=== PATIENT | female | born 1945 | race Asian ===

== ENCOUNTER 2017-01-29 05:06 | Inpatient (IN) | payer OTHER ==
[~2017-01-29] VITALS: Ht 152.4 cm; Wt 50.8 kg
--- NOTE | ~2017-01-29 | O ---
[facility] [place] [address] OPERATIVE REPORT Name: CORBYELADIA Margarita Room #: 417-I [facility] IN M.R.#: [id number] Admission: 01/29/17 Attend Phys: Mynor Denton DO Discharge: 02/04/17 Date of : 49 Report #: [id number] THIS REPORT FOR: //name// CC: Mynor Hunter DATE OF SERVICE: 01/31/2017 PREOPERATIVE DIAGNOSES: Cholecystitis, cholelithiasis and generalized lymphadenopathy. POSTOPERATIVE DIAGNOSES: 1. Cholecystitis with cholelithiasis. 2. Generalized lymphadenopathy and axillary lymphadenopathy. OPERATIVE PROCEDURE: 1. Laparoscopic cholecystectomy with cholangiogram. 2. Needle biopsy of liver. 3. Left axillary lymph node biopsy. SURGEON: Remington Jackson MD. GRADE RECORDER: Vargas Fink MD and DARREL Rutledge for the axillary lymph node biopsy. SECOND INDUSTRIAL ELECTRICIAN: Ravin Mai MS3. INDICATIONS: This is a 71-year-old lady who has presented with abdominal pain, found to have cholelithiasis by ultrasound. Her CAT scan also demonstrates periaortic and parailiac generalized lymphadenopathy. Clinically, the patient has a right supraclavicular node as well as enlarged left axillary nodes. The patient is also having right upper quadrant discomfort and requires resection of the gallbladder as well as lymph node evaluation. OPERATIVE PROCEDURE: The patient had thorough discussion of procedure, benefits and risks, she and her daughter gave informed consent. She was given preoperative IV antibiotics. She was brought to the operating room suite and had satisfactory induction of general endotracheal anesthesia. The patient's left arm was abducted. Sterile prep and paint of the left axillary region was performed initially, 0.5% plain Naropin was injected at the skin level. A 3-4 cm incision was made in the left axilla directly over the enlarged lymph node. Sharp and blunt dissection was carried down to the lymph node. Gentle dissection around the lymph node was performed utilizing a small jaws LigaSure device as well as Metzenbaum scissors. The entire large pink 2 cm diameter thickened node was excised intact with morphology intact without morcellation. After the resection was completed, was given the fresh date to pathology for [address] [address] OPERATIVE REPORT Name: ELADIA TAVAREZ Room #: 417-I [facility].#: [id number] Admission: 01/29/17 Attend Phys: Mynor Denton DO Discharge: 02/04/17 Date of : 49 Report #: [id number] histologic evaluation and flow cytometry. Irrigation of the wound was performed. Hemostasis was complete. The deep fascia of the axilla was approximated with interrupted 3-0 Vicryl and more superficial fascia was approximated with running 3-0 Vicryl. Skin margins were approximated with subcuticular 4-0 Monocryl. Dermabond was applied. Attention was then turned to the entire abdomen. DuraPrep preparation was performed. After draping was completed, another appropriate timeout was then performed. Open cutdown procedure was performed in the right upper quadrant below the costochondral margin. The Optiport trocar device was utilized with a 5.0 scope to gain access to the peritoneum. After access was obtained, pneumoperitoneum was established. The was then utilized to gain access at the umbilicus since the patient had a long midline incision from previous splenectomy. A 12 mm port with the balloon was inserted under direct vision at the infraumbilical port site. A midline 5-mm port was placed under direct vision and a far lateral 5-mm port was placed under direct vision. The gallbladder was grasped, retracted cephalad and laterally. The cystic duct lymph node was quite enlarged. The cystic duct triangle was clearly delineated. The cystic duct was identified and was clipped toward the gallbladder. Cystotomy was performed and the taut catheter was inserted and an operative cholangiogram was performed demonstrating free flow of contrast into the duodenum. No filling defects were noted. The cystic artery was identified and doubly clipped proximally. The artery was divided with the Sonicision without difficulty. After the cholangiogram was completed and the taut catheter removed, the duct was triply ligated. It was then divided with Sonicision. The gallbladder was resected from the fossa utilizing the Sonicision. It was placed into an Endobag and removed from the peritoneal cavity. After this was completed, the suture passing device was utilized under direct vision at the infraumbilical port site with placement of 0 PDS x 2 under direct vision. The trocar was reintroduced and the laparoscope introduced. Copious irrigation and control of the gallbladder fossa with electrocautery was performed. After evacuation of irrigating contents was accomplished, Kimberly powder was placed into the gallbladder fossa. No drains were placed. The Monopty needle biopsy device was utilized to obtain 2 pieces of liver tissue for further evaluation. This area of the biopsy site was cauterized with electrocautery. The Kimberly powder covered the gallbladder fossa as well as the biopsy site. After this was completed, all trocars were removed under direct vision. The pneumoperitoneum was deflated. The 0 PDS at the umbilicus was ligated in place. Skin margins were then approximated with subcuticular 4-0 Monocryl. The estimated blood loss was less than 25 mL. The patient tolerated the procedure well and she returned to recovery room in stable and satisfactory condition. <ELECTRONICALLY SIGNED> By: Remington Jackson MD, FACS 02/06/17 1018 1809 [id number] Remington Jackson MD, FACS /nt
--- NOTE | ~2017-01-29 | HC ---
[facility] [place] [address] CONSULTATION Name: BRAINDELIAELADIA Margarita Room #: 417-I ADM IN M.R.#: [id number] Admission: 01/29/17 Attend Phys: Mynor Denton DO Discharge: Date of : 49 Report #: [id number] THIS REPORT FOR: //name// CC: Mynor Hunter DATE OF SERVICE: 01/29/2017 I have been asked to evaluate this 71-year-old lady who has presented to Emergency Room with chief complaint of upper abdominal pain. The patient awakened at approximately 0300 the morning, she presented to the Emergency Department with pain in the upper abdomen. This seemed to be radiating across the upper abdomen involving both the left upper quadrant and the right upper quadrant. She denied vomiting, but has had nausea. She has had no recent change in gastrointestinal function. She does not have a recall having a colonoscopy or EGD in her recent medical history. 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 SOCIAL HISTORY: She smokes half pack of cigarettes a day for many years. Denies alcohol or illegal drug use. She is a . of lung cancer, was a lifelong 40 years in the [employer]. ALLERGIES: LEVOFLOXACIN, DOXYCYCLINE AND BACTRIM. MEDICATIONS: Singulair, lisinopril/hydrochlorothiazide. FAMILY HISTORY: Hypertension. REVIEW OF SYSTEMS: A 10-point review of systems essentially noncontributory except for recent onset of the abdominal pain with slight obstipation in the last 24 hours. PHYSICAL EXAMINATION: GENERAL: Reveals an alert, cooperative lady. VITAL SIGNS: Within normal limits, low grade temperature, slight temperature elevation. She is awake and alert. HEENT: No scleral icterus is noted. NECK: Supple, no bruits. CARDIOVASCULAR: Regular rate and rhythm. LUNGS: Clear bilaterally. ABDOMEN: Soft. There is a well-healed upper midline scar, tenderness is mild in the right upper quadrant. No palpable mass. No guarding or rebound is [address] [address] CONSULTATION Name: ELADIA TAVAREZ [facility] ..#: [id number] Admission: 01/29/17 Attend Phys: Mynor Denton DO Discharge: Date of : 47 Report #: [id number] noted. NEUROLOGIC: She is oriented x 3. LABORATORY DATA: Demonstrates lipase of 346. Liver function tests within normal. Creatinine 2, white count 12.2. Ultrasound of the abdomen demonstrates large gallstones with some suggestion of thickening. DIAGNOSTIC IMPRESSION: Abdominal pain, most likely related to cholelithiasis, although the symptoms are somewhat atypical. I recommend GI consultation, consideration for EGD and colonoscopy preoperatively. If these are negative, then I would proceed with laparoscopic cholecystectomy. The patient also on CT scan has significant generalized retroperitoneal lymphadenopathy. On exam, the patient has a right supraclavicular node as well as some left axillary adenopathy. I would recommend left axillary lymph node biopsy at the time of laparoscopic cholecystectomy. Thank you for allowing us to participate in her care. <ELECTRONICALLY SIGNED> By: Remington Jackson MD, FACS 02/04/17 1356 1415 0107 Remington Jackson MD, FACS /nt
--- NOTE | ~2017-01-29 | P ---
[facility] [place] [address] PROCEDURE REPORT Name: CORBYELADIA Margarita Room #: 417-I ADM IN M.R.#: [id number] Admission: 01/29/17 Attend Phys: Doni Terry MD Discharge: Date of : 49 Report #: [id number] THIS REPORT FOR: //name// CC: Burke Terry MD DATE OF SERVICE: 01/30/2017 TopofForm PROCEDURE: Diagnostic colonoscopy. INDICATION FOR PROCEDURE: Evaluate for sources of epigastric and right upper quadrant pain. Screening for colon polyps and colon cancer. DESCRIPTION OF PROCEDURE: Informed consent for this procedure was obtained prior to the administration of any medication. The risks of the procedure which include bleeding, perforation, infection, complications of sedation and the possibility I could miss something have been explained to the patient and she has indicated her consent by signing. Propofol was slowly titrated before and during this procedure for patient comfort by the anesthesia service as well as during the EGD that preceded it. The digital rectal exam did not reveal any palpable masses or abnormalities. Then the [employer] colonoscope was introduced through the anal sphincter and advanced under direct visualization to the terminal ileum. Findings are noted on withdrawal of the scope. The terminal ileum is not well visualized because I could not fully cannulate the ileocecal valve. The ileocecal valve and the appendiceal orifice, however, appear normal as does the rest of the cecum. Ascending colon, normal mucosa. Hepatic flexure, normal mucosa. Transverse colon, normal mucosa. Splenic flexure, normal mucosa. Descending colon, normal mucosa. Sigmoid colon, normal mucosa. Rectum, normal mucosa. Retroflex view in the rectum did not reveal any other abnormalities. The scope was withdrawn. The patient's prep was fairly good. She went to the recovery room in stable condition. She tolerated the procedure well. IMPRESSION: Normal colonoscopic exam to the cecum with good visualization of the appendiceal orifice and the ileocecal valve. I was unable to cannulate the ileocecal valve to visualize the terminal ileum. RECOMMENDATIONS: At this point are to await the EGD, biopsies, and we will await further surgical input regarding this epigastric pain and possible cholecystectomy. [address] [address] PROCEDURE REPORT Name: ELADIA TAVAREZ Room #: 417-I [facility] IN M.R.#: [id number] Admission: 01/29/17 Attend Phys: Doni Terry MD Discharge: Date of : 49 Report #: [id number] Thank you very much once again for allowing me to participate in her care. <ELECTRONICALLY SIGNED> By: Gita Lemons DO 01/31/17 0933 1629 0102 Gita Lemons, /nt
--- NOTE | ~2017-01-29 | EKG ---
[address] [place] [address] ELECTROCARDIOGRAM REPORT Name: ELADIA TAVAREZ Room #: 417-I ADM IN .R.#: [id number] Admission: 01/29/17 Attend Phys: Doni Terry MD Discharge: Date of : 49 Report #: [id number] THIS REPORT FOR: //name// [facility] ED Test Date: 2017-01-29 Test Time: 05:46:37 Pat Name: ELADIA CORBY Department: Room: [facility] Gender: F Branch Specialist: olga : 1945 Requested By: Tabitha Wong Order Number: [id number] MD: Stephen Lee Measurements Intervals [place] Rate: 70 P: 30 [place]: 167 QRS: 26 QRSD: 84 T: -50 QT: 443 QTc: 479 Interpretive Statements Sinus rhythm Atrial premature complex Probable LVH with secondary repol abnrm Baseline wander in lead(s) V5 No previous ECG available for comparison Electronically Signed On 01-31-2017 13:10:18 CDT by Stephen Lee [email or web address] <ELECTRONICALLY SIGNED> By: Stephen Lee MD 01/31/17 1310 Stephen Lee MD /HELADIO
--- NOTE | ~2017-01-29 | HC ---
[facility] [place] [address] CONSULTATION Name: CORBYELADIA Margarita Room #: 417-I [facility] IN .R.#: [id number] Admission: 01/29/17 Attend Phys: Mynor Denton DO Discharge: 02/04/17 Date of : 49 Report #: [id number] THIS REPORT FOR: //name// CC: Remington Terry MD HISTORY OF PRESENT ILLNESS: This 71-year-old female was admitted emergently with complaints of abdominal pain and subsequently found to have gallstone. CT scanning also revealed a suspicious retroperitoneal lymphadenopathy. She has a past history of prior lymph node biopsy at [facility] in the past, but those records are not currently unobtainable in checking with Research and we think it has been some 25 or so years ago. She denies any recent weight loss, sweats, chills, or fevers prior to the acute event. She has not detected pain in any of the enlarged lymph node areas until the acute event. PAST MEDICAL HISTORY: Positive prior splenectomy. She had previous knee surgery. She had prior medically managed hypertension. She has dyslipidemia. HOME MEDICATIONS: Include Singulair as well as lisinopril/hydrochlorothiazide. ALLERGIES: LEVOFLOXACIN, DOXYCYCLINE and BACTRIM causing hives. SOCIAL HISTORY: She is of [place] extraction with Frisian as a second language. She smokes half a pack of cigarettes per day. She denies alcohol abuse, illicit drug use, high risks of sexual behavior. FAMILY HISTORY: Positive for hypertension. REVIEW OF SYSTEMS: As in the history of present illness. PHYSICAL EXAMINATION: GENERAL: Shows alert female. HEENT: Normocephalic. Her mouth is clear. NECK: Supple. CHEST: Clear. ABDOMEN: Shows recent surgery. LYMPHATICS: Recent axillary lymph node biopsy. NEUROLOGIC: No focal localizing signs. PSYCHIATRIC: Not agitated or confused. LABORATORY DATA: Shows elevated serum creatinine. [facility] [address] [place] [address] CONSULTATION Name: ELADIA TAVAREZ Room #: 417-I [facility].#: [id number] Admission: 01/29/17 Attend Phys: Mynor Denton DO Discharge: 02/04/17 Date of : 49 Report #: [id number] ASSESSMENT: Lymphadenopathy. PLAN: I have told her this morning that the lymph node biopsy specimen has not yet been read by the pathologist and that these are usually not processed over the weekend. Hopefully, something will be out tomorrow. She is anxious to go home and if these results are still pending, I will make arrangements for outpatient followup if needed. Thanks for allowing me to see her in consultation and allowing me to participate in her care for what may represent a low-grade lymphoma. <ELECTRONICALLY SIGNED> By: Brit Keita MD 02/06/17 1327 1459 28 MD jaimee Stratton
--- NOTE | ~2017-01-29 | S ---
[facility] [place] [address] SURGICAL PATH RPT PROCEDURE Name: ELADIA TAVAREZ Room #: 417-I ADM IN M.R.#: [id number] Admission: 01/29/17 Date of : 49 Discharge: Report #: [id number] Path Case #: [id number] PATHOLOGY REPORT COLLECTION DATE: 01/30/2017 RECEIVED DATE: 01/31/2017 SUBMITTING PHYS: Dr. Gita Lemons OTHER PHYS: Dr. Burke Schumacher SPECIMEN(S) RECEIVED: A.Gastric * * * * * * * * * * * * FINAL DIAGNOSIS: Gastric mucosa, gastric, endoscopic biopsy: - Mild active gastritis along with changes of reactive gastropathy with focal intestinal metaplasia. - Negative for atrophy or dysplasia. - Negative for Helicobacter pylori. COMMENT: Helicobacter pylori immunohistochemical stain performed on block A1 negative. An intensive search for Helicobacter pylori-like organisms is negative. Absence of such organisms does not entirely exclude the possibility and may be due to sampling or prior treatment for Helicobacter pylori. Other possible etiologies may include chemical or medication induced gastritis, autoimmune gastritis, gastritis associated with inflammatory bowel disease. Please correlate with clinical, endoscopic, and microbiological studies if clinically indicated. (IUV:csd; d/t: 02/03/2017) PATHOLOGIST: Triny Ness M.D. REPORT ELECTRONICALLY SIGNED BY: Triny Ness M.D. DATE/TIME: 02/03/2017 16:10 * * * * * * * * * * * * GROSS PATHOLOGY: Received in formalin labeled "McGroarty, Eladia and gastric," are 4 segments of rios soft tissue measuring 1.6 x 0.3 x 0.3 cm in aggregate dimensions and ranging from 0.2 to 0.5 cm in maximum dimension. The specimen is submitted entirely in cassette A1. (TTL; 01/31/2017) [facility] [place] [address] SURGICAL PATH RPT PROCEDURE Name: ELADIA TAVAREZ B Room #: 417-I ADM IN [facility]#: [id number] Admission: 01/29/17 Date of : 49 Discharge: Report #: [id number] Path Case #: [id number] CLINICAL HISTORY: Abdominal pain INITIAL CPT CODE(S): A; 64000, 94374 Professional services performed by [facility] at [address] , [place] [address] Technical services performed by [facility] at [address] [place] [address], [facility] [address] [address]. [facility] [address] [address] PHONE: [phone] DIRECTOR: Kulwinder Montgomery M.D. * * * END OF REPORT * * *
--- NOTE | ~2017-01-29 | P ---
[facility] [place] [address] PROCEDURE REPORT Name: CORBYELADIA Margarita Room #: 417-I ADM IN M.R.#: [id number] Admission: 01/29/17 Attend Phys: Doni Terry MD Discharge: Date of : 49 Report #: [id number] THIS REPORT FOR: //name// CC: Burke Terry MD DATE OF SERVICE: 01/30/2017 PROCEDURE: Esophagogastroduodenoscopy with biopsy. The patient of Dr. Terry and Dr. Burke Hunter. INDICATION FOR PROCEDURE: This patient has epigastric and right upper quadrant pain of uncertain etiology. Colonoscopy has never been done for this patient in the past for screening purposes, so EGD and colonoscopy are being offered and the patient is prepped and agreeable. The risks of bleeding, perforation, infection, complications of sedation, and the possibility I could miss something have been explained to the patient and she has indicated her consent by signing. Propofol was slowly titrated before and during this procedure for patient comfort by the anesthesia service. The Kodkod upper videoscope was introduced through the upper esophageal sphincter and advanced under direct visualization to the descending duodenum. Findings are noted on withdrawal of the scope. The duodenal mucosa appears normal throughout its entirety. Pylorus, normal mucosa. Antrum, mild erythema is noted. Biopsies were obtained from the antrum and body of the stomach for Helicobacter pylori rapid JAIDEN test. Body, normal mucosa. Cardia and fundus, normal mucosa. Retroflex view did not reveal any hiatal hernia. The scope was withdrawn to the esophagus. The Z line was appropriately located at the top of the gastric folds and appears normal. The esophageal mucosa appears normal throughout its entirety. The scope was withdrawn. The patient was turned for colonoscopy. IMPRESSION: Very mild antral erythema. Biopsies pending for H. pylori other than that, normal esophagogastroduodenoscopy to descending duodenum. Recommendations are to await the biopsy results and we will proceed with colonoscopy at this time. Thank you very much once again for allowing me to participate in her care. PROCEDURE: Diagnostic colonoscopy. INDICATION FOR PROCEDURE: Evaluate for sources of epigastric and right upper quadrant pain. [facility] [address] [place] [address] PROCEDURE REPORT Name: ELADIA TAVAREZ Room #: 417-I [facility] IN [facility].#: [id number] Admission: 01/29/17 Attend Phys: Doni Terry MD Discharge: Date of : 49 Report #: [id number] Screening for colon polyps and colon cancer. DESCRIPTION OF PROCEDURE: Informed consent for this procedure was obtained prior to the administration of any medication. The risks of the procedure which include bleeding, perforation, infection, complications of sedation and the possibility I could miss something have been explained to the patient and she has indicated her consent by signing. Propofol was slowly titrated before and during this procedure for patient comfort by the anesthesia service as well as during the EGD that preceded it. The digital rectal exam did not reveal any palpable masses or abnormalities. Then the Fujinon colonoscope was introduced through the anal sphincter and advanced under direct visualization to the terminal ileum. Findings are noted on withdrawal of the scope. The terminal ileum is not well visualized because I could not fully cannulate the ileocecal valve. The ileocecal valve and the appendiceal orifice, however, appear normal as does the rest of the cecum. Ascending colon, normal mucosa. Hepatic flexure, normal mucosa. Transverse colon, normal mucosa. Splenic flexure, normal mucosa. Descending colon, normal mucosa. Sigmoid colon, normal mucosa. Rectum, normal mucosa. Retroflex view in the rectum did not reveal any other abnormalities. The scope was withdrawn. The patient's prep was fairly good. She went to the recovery room in stable condition. She tolerated the procedure well. IMPRESSION: Normal colonoscopic exam to the cecum with good visualization of the appendiceal orifice and the ileocecal valve. I was unable to cannulate the ileocecal valve to visualize the terminal ileum. RECOMMENDATIONS: At this point are to await the EGD, biopsies, and we will await further surgical input regarding this epigastric pain and possible cholecystectomy. Thank you very much once again for allowing me to participate in her care. <ELECTRONICALLY SIGNED> By: Gita Lemons DO 01/31/17 0933 1629 0058 Gita Lemons DO /nt
--- NOTE | ~2017-01-29 | S ---
[facility] [address] [place] [address] SURGICAL PATH RPT PROCEDURE Name: ELADIA TAVAREZ Room #: 417-I ADM IN M.R.#: [id number] Admission: 01/29/17 Date of : 49 Discharge: Report #: [id number] Path Case #: [id number] PATHOLOGY REPORT DRAFT COLLECTION DATE: 01/31/2017 RECEIVED DATE: 01/31/2017 SPECIMEN(S) RECEIVED: A.Left axillary node B.Gallbladder C.Liver biopsy
--- NOTE | ~2017-01-29 | HC ---
[facility] [place] [address] [place] [address] CONSULTATION Name: ELADIA TAVAREZ Room #: 417-I ADM IN .R.#: [id number] Admission: 01/29/17 Attend Phys: Mynor Denton DO Discharge: Date of : 49 Report #: [id number] THIS REPORT FOR: //name// CC: Mynor Keiat MD DATE OF SERVICE: 02/03/2017 REASON FOR CONSULTATION: Elevated creatinine level. HISTORY OF PRESENT ILLNESS: This is a 71-year-old female who presented 5 days ago with acute abdominal pain. There were multiple findings. Amongst these included cholecystitis with cholelithiasis. She ended up having a laparoscopic cholecystectomy done on 01/31/2017. She has recovered nicely from that. In addition, she was found to have some abnormal appearance of her liver and also some enlarged retroperitoneal aortic and iliac lymph nodes. She underwent a lymph node biopsy at that same time as well as a liver biopsy. The results of that are pending. We are asked to see the patient for an elevated creatinine level. On admission, her creatinine was 2.0. It has been running between that and 2.4, which it is today. In talking with the patient, she knows of no prior renal-related history. She says she is followed by Dr. Burke Hunter and he has never made mention of an abnormal creatinine level. Her urinalysis shows she has 1+ proteinuria. She is unaware of prior proteinuria. She has a history of hypertension and previously was on lisinopril with hydrochlorothiazide. For some reason that was stopped on admission. She is now on some metoprolol and amlodipine and blood pressures came under better control. Additional remarkable findings include an admission total protein of 9.6 and an albumin of 2.5. She had a serum protein electrophoresis done which shows an enlarged gamma fraction and immunofluorescence is pending on that. Dr. Brit Keita has been consulted of the oncology division and he is awaiting the biopsy of the lymph node to make further determinations if anything else needs to be done. PAST MEDICAL HISTORY: Positive for hypertension as noted above. She has had a previous splenectomy and I am uncertain why she has also had a prior right lower extremity surgery. She had previous bleeding ulcers. She has hyperlipidemia. MEDICATIONS: On admission were lisinopril, hydrochlorothiazide and some Singulair. ALLERGIES: LEVAQUIN, DOXYCYCLINE, BACTRIM. FAMILY HISTORY: Father in his late 80s. He developed renal failure and he was living in the [facility] at that time. He the kidney transplant for 5 or 6 years before that kidney failed and he shortly after that. The [address] [address] CONSULTATION Name: ELADIA TAVAREZ Room #: 417-I [facility] IN ..#: [id number] Admission: 01/29/17 Attend Phys: Mynor Denton DO Discharge: Date of : 49 Report #: [id number] patient is unaware of what caused his renal failure. Her mother lived to a very old age and of old age. She had 6 brothers, one was after of a stomach cancer, two others were from unknown causes. She knows of no one else in the family with history of renal disease. SOCIAL HISTORY: The patient is a . She lives in [place], [place]. She is retired. She immigrated from the [facility] in her early adulthood. REVIEW OF SYSTEMS: States she is breathing well. Denies dyspnea, cough, chest pain or palpitations. Says her appetite has not picked up fully since surgery, but she is eating without nausea or vomiting. Pain is well controlled. No peripheral edema. No difficulty voiding urine. Weight has been stable. She denies fevers, chills or sweats. No recent visual or hearing change. PHYSICAL EXAMINATION: GENERAL: Very pleasant 71-year-old female, awake, alert and oriented at this time. VITAL SIGNS: Blood pressure 148/92, heart rate 61, respiratory rate 18, oxygen saturation 95%, temperature 37.3. HEENT: Shows pupils are equal and reactive. Sclerae nonicteric. She is edentulous. Oral mucosa is without lesions. NECK: Supple, without adenopathy, thyromegaly, JVD or bruit. CHEST: Clear bilaterally, no CVA tenderness. CARDIOVASCULAR: Heart has a regular rate and rhythm. No murmur or gallop or rub. ABDOMEN: Postop. It is fairly nontender. Bowel sounds are present. EXTREMITIES: Show no peripheral edema. She has 1+ peripheral pulses. LABORATORY DATA: From today, sodium 141, potassium 3.2, chloride 110, bicarbonate 19, BUN 45, creatinine 2.4, glucose 90, calcium 8.2, phosphorus 3.2, albumin down to 1.8. White count 14.3, hemoglobin 11.6, hematocrit 36.2, platelets 370,000. Urinalysis on admission, specific gravity 1.015, pH 6.0, 1+ protein, 2+ blood, fairly unremarkable microscopic exam. She did have a urine protein creatinine ratio which showed 395 mg of protein. ASSESSMENT AND PLAN: 1. Chronic kidney disease is the most likely diagnosis. Her creatinine has been persistent in the 2 range. We will try to contact Dr. Hunter and see what his records show us as he has followed her regularly. She does have some proteinuria. Her father of renal failure, but his kidneys did not fail until the 80s, so I doubt this is a familial problem. 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 She had a CT scan which showed no obstructive changes and fairly normal appearing kidneys. With that in mind, the more likely diagnosis with mild proteinuria as well as her very large globulin fraction and her lymphadenopathy is that she has a paraprotein disorder and might have developed some renal disease due to that. We will know a lot more on [facility] [address] [place] [address] CONSULTATION Name: ELADIA TAVAREZ Room #: 417-I ADM IN M.R.#: [id number] Admission: 01/29/17 Attend Phys: Mynor Denton DO Discharge: Date of : 47 Report #: [id number] that pending her immunofluorescence on her protein evaluation as well as her lymph node biopsy. If those are positive, she will need treatment and we will see how her kidneys respond to all that. I would note that she is not massively nephrotic. She has no edema. 2. Hypertension. We probably want to get her back on some lisinopril in the long run, but we can always do that as an outpatient. For right now, we will keep her on her current meds. 3. Three days post laparoscopic cholecystectomy, liver biopsy and lymph node biopsy. She is progressing well postop. 4. Abnormal white count with multiple areas of lymphadenopathy, again biopsy is pending as noted above. 5. Hypokalemia. We will give her some oral replacement today. PLAN: 1. Replace potassium. 2. Follow up labs in the morning. 3. We will await to see her what her biopsy shows. 4. We will try to get records from Dr. Hunter. 5. We will then see her in the office for followup longer term. <ELECTRONICALLY SIGNED> By: Thong Byrnes MD 02/04/17 0842 [id number] Thong Byrnes MD /nt
--- NOTE | ~2017-01-29 | H ---
[facility] [place] [address] [address] HISTORY AND PHYSICAL Name: BRAINDELIAELADIA Margarita Room #: 417-I ADM IN .R.#: [id number] Admission: 01/29/17 Attend Phys: Doni Terry MD Discharge: Date of : 47 Report #: [id number] THIS REPORT FOR: //name// CC: Burke Terry DATE OF SERVICE: 01/29/2017 CHIEF COMPLAINT: Abdominal pain. HISTORY OF PRESENT ILLNESS: The patient is a 71-year-old female with history of hypertension, presented to the Emergency Room complaining of upper abdominal pain. The patient woke up at around 2:30 this morning complaining of pain. Pain is primarily in the upper abdomen in the epigastric area and in the right upper and left upper quadrant. It feels like gas pain to her. This has been associated with some mild nausea, but no vomiting, no diarrhea, no hematemesis, no melena. The patient denies any dysuria. Workup in the Emergency Room included an ultrasound which showed a gallstone. Her creatinine also elevated at 2.0. PAST MEDICAL HISTORY: Significant for hypertension, history of splenectomy, history of knee surgery. No history of any peptic ulcer disease, bleeding disorder. She has no history of any coronary artery disease. History of dyslipidemia. SOCIAL HISTORY: She smokes half a pack a day. No history of alcohol abuse or illicit drug abuse. ALLERGIES: The patient is allergic to LEVOFLOXACIN, DOXYCYCLINE and BACTRIM, all caused her hives. The patient is a very poor historian. HOME MEDICATIONS: Includes Singulair and lisinopril/hydrochlorothiazide. FAMILY HISTORY: Significant for hypertension. REVIEW OF SYSTEMS: CONSTITUTIONAL: No recent weight loss, weight gain. No fever or chills. EYES: No change in vision. THROAT: Denies any sore throat. CARDIOVASCULAR: No chest pain, dizziness, palpitations. RESPIRATORY: No cough, expectoration. GASTROINTESTINAL: As above. GENITOURINARY: As above. NEUROLOGIC: No focal numbness or weakness of the extremity. [facility] [address] [place] [address] HISTORY AND PHYSICAL Name: ELADIA TAVAREZ Room #: 417-I [facility] IN [facility]#: [id number] Admission: 01/29/17 Attend Phys: Doni Terry MD Discharge: Date of : 47 Report #: [id number] PSYCHIATRIC: No anxiety or depression. A 12-point review of system is negative other than the positive and negative dictated in the history of present illness and the review of system. PHYSICAL EXAMINATION: VITAL SIGNS: Reveal blood pressure is 117/74, heart rate of 98 per minute, afebrile. GENERAL: The patient is awake and alert, not in acute respiratory distress. EYES: Pupils equal, reactive to light, nonicteric, conjunctivae. THROAT: She has a dry oral mucosa. NECK: Supple, no JVD, no bruit, no lymphadenopathy. CARDIOVASCULAR SYSTEM: S1, S2, negative S3, no murmur. CHEST: Bilateral air entry present. Clear on auscultation. ABDOMEN: Soft, bowel sounds present, no mass, no organomegaly. There is tenderness in the right upper quadrant and epigastric area. No rebound tenderness. PERIPHERY: No pedal edema. No calf tenderness. Dorsalis pedis 1+. NEUROLOGICAL: No gross motor or sensory deficit. LABORATORY DATA: Reviewed. Lipase is 346. AST and ALT are within normal limits. Creatinine is elevated at 2.0. Potassium is low at 3.2. White count is 12.2 with normal hemoglobin, hematocrit and platelets. UA revealed 0-5 wbc. Ultrasound of the abdomen showed a large gallstone. There is also some gallbladder wall thickening. ASSESSMENT AND PLAN: 1. Abdominal pain, possible peptic ulcer disease and gallbladder disease. The patient has been evaluated by Dr. Jackson from Surgery. The patient is scheduled for a PIPIDA scan and a CT scan of the abdomen and pelvis. We will continue with IV Zosyn at present. 2. She has a rash on her lower extremity. The patient states she was allergic to ANTIBIOTIC prescribed by a doctor, it is not very clear what ANTIBIOTIC she took recently. 3. Hypertension. We will discontinue lisinopril/hydrochlorothiazide secondary to acute renal failure. We will order p.r.n. hydralazine. 4. Acute renal failure, likely prerenal secondary to poor p.o. intake. We will continue with IV hydration and repeat her labs in the morning. 5. Deep venous thrombosis prophylaxis. She will be on SCD on the leg for deep venous thrombosis prophylaxis. 6. History of splenectomy. 7. Hypokalemia. Potassium has been replaced in the ER. [address] [address] HISTORY AND PHYSICAL Name: ELADIA TAVAREZ Room #: [address] [place] [address] [place] ..#: [id number] Admission: 01/29/17 Attend Phys: Doni Terry MD Discharge: Date of : 47 Report #: [id number] Treatment plan has been explained to the patient and the patient's daughter at bedside in detail. <ELECTRONICALLY SIGNED> By: Doni Terry MD 01/29/17 1421 [id number] 1322 Doni Terry MD /nt
[2017-01-29 05:07] VITALS: BP 221/101
[2017-01-29] MEDS ORDERED: IBUPROFEN 600600 M1 PO (05:27)
[2017-01-29 05:33] LABS: ABSOLUTE NEUTROPHILS 9.5 thou/uL (1.4-8.2); BASOPHILS 0.6 % (0.0-2.0); EOSINOPHILS 1.9 % (0.0-3.0); HEMOGLOBIN 12.5 gm/dL (12.0-15.0); LYMPHOCYTES 14.4 % (24.0-44.0); MCH 26.6 pg (26.0-34.0); MCHC 32.1 g/dL (28.0-37.0); MCV 82.7 fL (80.0-100.0); MONOCYTES 5.9 % (1.0-8.0); PLATELET COUNT 363 thou/uL (150-400); POLYS 77.2 % (36.0-66.0); RBC 4.71 mil/uL (4.20-5.00); RDW 15.9 % (10.5-14.5); WBC 12.2 thou/uL (4.0-11.0)
[2017-01-29 05:36] LABS: MANUAL DIFF NO
[2017-01-29 05:50] LABS: URINE BILIRUBIN NEGATIVE (Negative); URINE BLOOD 2+ (Negative); URINE COLOR YELLOW; URINE GLUCOSE-RANDOM* NEGATIVE (Negative); URINE KETONES NEGATIVE (Negative); URINE LEUKOCYTES-REFLEX NEGATIVE (Negative); URINE PROTEIN (DIPSTICK) 1+ (Negative); URINE SPECIFIC GRAVITY 1.015 (1.003-1.035); URINE UROBILINOGEN 0.2 E.U./dl (0.2-1.0)
[2017-01-29 05:52] LABS: ALBUMIN 2.5 g/dL (3.4-5.0); CALCIUM 8.5 mg/dL (8.5-10.1); POTASSIUM 3.2 mmol/L (3.5-5.1); TOTAL BILIRUBIN 0.2 mg/dL (<0.1-1.0); TOTAL PROTEIN 9.6 g/dL (6.4-8.2)
[2017-01-29 06:24] LABS: SQUAMOUS 0-3 Few /LPF (0-3)
[2017-01-29 06:25] LABS: CASTS None Seen /LPF (None Seen); CRYSTALS None Seen /LPF (None Seen); URINE RBC 0-2 Rare /HPF (0-2); URINE WBC-REFLEX 0-5 Rare /HPF (0-5)
[2017-01-29 07:48] VITALS: BP 123/72
[2017-01-29 08:20] VITALS: BP 117/74
[2017-01-29 16:48] VITALS: BP 143/84
[2017-01-29 19:20] VITALS: BP 173/73
[2017-01-29 21:19] VITALS: BP 133/57
[2017-01-30 04:00] VITALS: BP 144/65
[2017-01-30 06:34] LABS: HEMATOCRIT 37.5 % (37.0-47.0); HEMOGLOBIN 12.1 gm/dL (12.0-15.0); MCH 26.6 pg (26.0-34.0); MCHC 32.4 g/dL (28.0-37.0); MCV 82.2 fL (80.0-100.0); RBC 4.56 mil/uL (4.20-5.00); RDW 15.6 % (10.5-14.5); WBC 10.9 thou/uL (4.0-11.0)
[2017-01-30 07:06] LABS: CALCIUM 7.9 mg/dL (8.5-10.1); POTASSIUM 3.6 mmol/L (3.5-5.1); TOTAL BILIRUBIN 0.9 mg/dL (<0.1-1.0); TOTAL PROTEIN 7.8 g/dL (6.4-8.2)
[2017-01-30 07:23] VITALS: BP 138/71
[2017-01-30 17:11] VITALS: BP 117/71
[2017-01-30 19:47] VITALS: BP 127/77
[2017-01-31] VITALS (7 sets, daily range): BP systolic 121–148; BP diastolic 65–73
[2017-01-31 02:48] LABS: URINE BILIRUBIN NEGATIVE (Negative); URINE BLOOD 1+ (Negative); URINE COLOR YELLOW; URINE GLUCOSE-RANDOM* NEGATIVE (Negative); URINE KETONES NEGATIVE (Negative); URINE LEUKOCYTES-REFLEX NEGATIVE (Negative); URINE PROTEIN (DIPSTICK) TRACE (Negative); URINE UROBILINOGEN 0.2 E.U./dl (0.2-1.0)
[2017-01-31 05:49] LABS: ABSOLUTE NEUTROPHILS 7.7 thou/uL (1.4-8.2); BASOPHILS 0.4 % (0.0-2.0); EOSINOPHILS 6.9 % (0.0-3.0); HEMATOCRIT 36.8 % (37.0-47.0); HEMOGLOBIN 11.7 gm/dL (12.0-15.0); MCH 26.4 pg (26.0-34.0); MCHC 31.9 g/dL (28.0-37.0); MCV 82.7 fL (80.0-100.0); MONOCYTES 9.5 % (1.0-8.0); PLATELET COUNT 304 thou/uL (150-400); POLYS 65.2 % (36.0-66.0); RBC 4.45 mil/uL (4.20-5.00); RDW 15.9 % (10.5-14.5); WBC 11.7 thou/uL (4.0-11.0)
[2017-01-31 06:06] LABS: MANUAL DIFF NO
[2017-01-31 06:14] LABS: CALCIUM 7.9 mg/dL (8.5-10.1); CREATININE 2.1 mg/dL (0.6-1.3); POTASSIUM 3.5 mmol/L (3.5-5.1)
[2017-01-31 07:57] LABS: CASTS None Seen /LPF (None Seen); SQUAMOUS 0-3 Few /LPF (0-3)
[2017-01-31 07:58] LABS: CRYSTALS None Seen /LPF (None Seen); URINE RBC 0-2 Rare /HPF (0-2); URINE WBC-REFLEX 0-5 Rare /HPF (0-5)
[2017-02-01 04:00] VITALS: BP 153/85
[2017-02-01 07:15] LABS: HEMATOCRIT 36.1 % (37.0-47.0); HEMOGLOBIN 11.5 gm/dL (12.0-15.0); MCH 26.5 pg (26.0-34.0); MCHC 31.8 g/dL (28.0-37.0); MCV 83.5 fL (80.0-100.0); RBC 4.32 mil/uL (4.20-5.00); RDW 16.1 % (10.5-14.5); WBC 14.4 thou/uL (4.0-11.0)
[2017-02-01 07:25] LABS: CALCIUM 8.3 mg/dL (8.5-10.1); CREATININE 2.3 mg/dL (0.6-1.3); POTASSIUM 4.6 mmol/L (3.5-5.1)
[2017-02-01 07:31] VITALS: BP 148/84
[2017-02-01 15:27] VITALS: BP 173/98
[2017-02-01 20:00] VITALS: BP 183/73
[2017-02-02 04:30] VITALS: BP 191/101
[2017-02-02 06:58] LABS: HEMOGLOBIN 12.5 gm/dL (12.0-15.0); MCH 26.6 pg (26.0-34.0); MCV 83.1 fL (80.0-100.0); RBC 4.7 mil/uL (4.20-5.00); WBC 12.7 thou/uL (4.0-11.0)
[2017-02-02 07:10] LABS: CALCIUM 8.3 mg/dL (8.5-10.1); CREATININE 2.3 mg/dL (0.6-1.3); POTASSIUM 3.7 mmol/L (3.5-5.1)
[2017-02-02 07:54] VITALS: BP 178/89
[2017-02-02 11:15] VITALS: BP 184/91
[2017-02-02 16:00] VITALS: BP 170/83
[2017-02-02 20:00] VITALS: BP 163/95
[2017-02-03] VITALS (7 sets, daily range): BP systolic 139–178; BP diastolic 76–93
[2017-02-03 04:46] LABS: HEMATOCRIT 36.2 % (37.0-47.0); HEMOGLOBIN 11.6 gm/dL (12.0-15.0); MCH 26.4 pg (26.0-34.0); MCHC 32.1 g/dL (28.0-37.0); MCV 82.2 fL (80.0-100.0); RBC 4.41 mil/uL (4.20-5.00); RDW 15.9 % (10.5-14.5); WBC 14.3 thou/uL (4.0-11.0)
[2017-02-03 05:01] LABS: ALBUMIN 1.8 g/dL (3.4-5.0); CALCIUM 8.2 mg/dL (8.5-10.1); CREATININE 2.4 mg/dL (0.6-1.3); PHOSPHORUS 3.2 mg/dL (2.5-4.9); POTASSIUM 3.2 mmol/L (3.5-5.1)
[2017-02-03 15:07] LABS: A/G RATIO 0.5 (0.7-1.7); ALBUMIN 2.6 g/dL (2.9-4.4); ALPHA 1 0.3 g/dL (0.0-0.4); ALPHA 2 0.6 g/dL (0.4-1.0); BETA 0.7 g/dL (0.7-1.3); GAMMA 3.3 g/dL (0.4-1.8); M-SPIKE Not Observed g/dL (Not Observed)
[2017-02-03 18:07] LABS: URINE CREATININE-RANDOM* 40.8 mg/dL (Not Estab.); URINE PROTEIN-RANDOM* 16.1 mg/dL (Not Estab.)
[2017-02-04 04:00] VITALS: BP 163/72
[2017-02-04 06:50] LABS: ALBUMIN 1.9 g/dL (3.4-5.0); CALCIUM 8.4 mg/dL (8.5-10.1); CREATININE 2.1 mg/dL (0.6-1.0); PHOSPHORUS 3.4 mg/dL (2.5-4.9)
[2017-02-04 07:01] VITALS: BP 161/72
== END 2017-02-04 17:00 | disposition home health service (06) | DRG 417 ==
LOC: ER 05:06 → 4E 06:36 → EROBS 06:36 → 4E 07:48
PROVIDERS: Emergency Medicine; Hospitalist; Internal Medicine; Internal Medicine Gastroenterology; Internal Medicine Nephrology; Surgery
PROC: 0DB68ZX Excision of Stomach, Via Natural or Artificial Opening Endoscopic, Diagnostic (ICD-10-PCS; 2017-01-30)
PROC: 0DJD8ZZ Inspection of Lower Intestinal Tract, Via Natural or Artificial Opening Endoscopic (ICD-10-PCS; 2017-01-30)
PROC: BF121ZZ Fluoroscopy of Gallbladder using Low Osmolar Contrast (ICD-10-PCS; principal; 2017-01-31)
PROC: 07B64ZX Excision of Left Axillary Lymphatic, Percutaneous Endoscopic Approach, Diagnostic (ICD-10-PCS; principal; 2017-01-31)
PROC: 0FT44ZZ Resection of Gallbladder, Percutaneous Endoscopic Approach (ICD-10-PCS; principal; 2017-01-31)
PROC: 0FB04ZX Excision of Liver, Percutaneous Endoscopic Approach, Diagnostic (ICD-10-PCS; principal; 2017-01-31)
DX: K80.00 Calculus of gallbladder with acute cholecystitis without obstruction (principal); E43 Unspecified severe protein-calorie malnutrition; N17.9 Acute kidney failure, unspecified; E87.6 Hypokalemia; Z96.659 Presence of unspecified artificial knee joint; I10 Essential (primary) hypertension; E78.5 Hyperlipidemia, unspecified; R59.1 Generalized enlarged lymph nodes; F17.210 Nicotine dependence, cigarettes, uncomplicated; K21.9 Gastro-esophageal reflux disease without esophagitis; R16.0 Hepatomegaly, not elsewhere classified; Z90.81 Acquired absence of spleen; Z88.1 Allergy status to other antibiotic agents; Z82.49 Family history of ischemic heart disease and other diseases of the circulatory system; Z79.899 Other long term (current) drug therapy; Z68.21 Body mass index [BMI] 21.0-21.9, adult
CPT/HCPCS: 10084; 50010; 50101; 50249; 50411; 50555; 50900; 50942; 50962; 51046; 51489; 51975; 52265; 52266; 52287; 53307; 53314; 54022; 54118; 55245; 55317; 56462; 56524; 56525; 56526; 56531; 56970; 62110; 62900; 70005

== ENCOUNTER 2017-02-07 01:41 | Inpatient (IN) | payer OTHER ==
[~2017-02-07] VITALS: Ht 152.4 cm; Wt 46.3 kg
--- NOTE | ~2017-02-07 | H ---
[facility] [place] [address] [place] [address] HISTORY AND PHYSICAL Name: CORBYELADIA Margarita Room #: 210-P [facility] IN .R.#: [id number] Admission: 02/07/17 Attend Phys: Noah Marie MD Discharge: 02/07/17 Date of : 47 Report #: [id number] THIS REPORT FOR: //name// CC: Burke Marie DATE OF SERVICE: 02/07/2017 ATTENDING PHYSICIAN: Noah Marie M.D. PRIMARY CARE PHYSICIAN: Burke Hunter M.D. CHIEF COMPLAINT: Epigastric and chest pain. HISTORY OF PRESENT ILLNESS: The patient is a 71-year-old female who was just hospitalized here for acute cholecystitis and ended up having a laparoscopic cholecystectomy with cholangiogram and a liver biopsy. This was done on 01/29. She did well postoperatively and was just discharged to home 3 days ago. She has been back to eating normal foods and has had a few small bowel movements since surgery. Her pain has been controlled on tramadol. Last night she ate a few bites of some pizza crust and an hour or so later, she started having some severe epigastric pain. The pain went into her chest area. She thought this pain was similar to when she had her cholecystitis issues. She describes it as "like somebody is fighting in there." She did have some associated dizziness, shortness of breath and nausea, but denies any vomiting. She also says it feels like heartburn and gas. She was evaluated in the ER and noted to have a mildly elevated troponin, and she has been admitted for further cardiac evaluation. She denies any prior coronary artery disease. She says she has had a stress test as well as an echocardiogram at [facility] she thinks within the last year. 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 She denies any injury, denies any recent illness including cough or congestion, fevers or chills. She is currently resting comfortably. PAST MEDICAL HISTORY: Chronic kidney disease stage III, gastritis, hypertension and hyperlipidemia. PAST SURGICAL HISTORY: Cholecystectomy, splenectomy, liver biopsy and knee repair. ALLERGIES: ACETAMINOPHEN causes hives and itching, DOXYCYCLINE causes rash and hives, HYDRALAZINE hives, LEVOFLOXACIN rash and hives and BACTRIM unknown reaction. HOME MEDICATIONS: Lisinopril/hydrochlorothiazide 20/12.5 one tab daily and tramadol 50 mg q.6 hours p.r.n. [address] [address] HISTORY AND PHYSICAL Name: ELADIA TAVAREZ Room #: 210-P [facility] IN [facility].#: [id number] Admission: 02/07/17 Attend Phys: Noah Marie MD Discharge: 02/07/17 Date of : 47 Report #: [id number] SOCIAL HISTORY: The patient smokes 1 pack of cigarettes, but it will last her a month. Denies any alcohol or drug use. She is a . She lives alone. She ambulates independently. FAMILY HISTORY: Significant for hypertension, negative for any strokes. REVIEW OF SYSTEMS: A 12-point review of systems was reviewed with the patient, otherwise negative unless stated in the HPI. PHYSICAL EXAMINATION: GENERAL: The patient is an alert female in no acute distress. VITAL SIGNS: Temperature is 37.2, heart rate 78, respirations 17, blood pressure is 156/96 and oxygen 100% on room air. HEENT: PERRLA. Sclerae are nonicteric. Oral mucosa is pink and moist. NECK: Supple, no JVD noted. CARDIOVASCULAR: Normal S1 and S2. No murmurs, rubs or gallops. RESPIRATORY: Breath sounds are clear bilaterally. No wheezing or rhonchi. Breathing is nonlabored. ABDOMEN: Soft and nondistended. She does have slight tenderness in the epigastric area. Bowel sounds are positive. VASCULAR: No edema noted. Pedal pulses are 2+. She does have some palpable cord like vein in her right half that is tender to palpation but her calf really does not have any edema. NEUROLOGIC: The patient is an alert female in no acute distress. SKIN: Intact. No rashes or lesions. LABORATORY AND DIAGNOSTIC DATA: WBC is 15.6, hemoglobin 13.1 and platelets 47. Sodium 135, potassium 3.1, BUN 34, creatinine 2.0 and troponin was 0.17. D-dimer is 4.28, albumin is 2.3, lipase is 357 and EKG is showing sinus rhythm with a left ventricular hypertrophy and V/Q scan is pending. ASSESSMENT AND PLAN: 1. Epigastric pain and chest pain: The patient was noted to have a mildly elevated troponin. Her symptoms may be cardiac related. We will continue to monitor on telemetry, check 2 more sets of troponins. We will keep her n.p.o. for possible further cardiac testing and consult Dr. Cope with Cardiology. We will also try a dose of a GI cocktail. 2. Elevated D-dimer: The patient does have a palpable cord like vein in her right calf. We will check venous Doppler. 3. Recent cholecystectomy: Continue with postoperatively pain control. 4. Chronic kidney disease stage III: Creatinine is stable from previous admission. Monitor renal function closely. 5. Hypertension: Blood pressure is stable. We will hold her home meds while she is n.p.o. and then resume when able to take p.o. 6. Hyperlipidemia: Resume home meds when able to take p.o. 7. Hypokalemia: Replace and follow labs. [facility] [address] [place] [address] HISTORY AND PHYSICAL Name: ELADIA TAVAREZ Room #: 210-P [facility] IN M.R.#: [id number] Admission: 02/07/17 Attend Phys: Noah Marie MD Discharge: 02/07/17 Date of : 47 Report #: [id number] 8. Deep vein thrombosis prophylaxis: Start Lovenox. We will continue to follow the patient closely throughout the hospitalization and make changes based on clinical status. <ELECTRONICALLY SIGNED> By: DARREL Vaughn 02/11/17 0608 0629 0733 DARREL Vaughn /nt
--- NOTE | ~2017-02-07 | 2DMMODE ---
[facility] [address] [facility] [place] [address] 2 D/M-MODE ECHOCARDIOGRAM Name: ELADIA TAVAREZ Room #: 210-P [facility] IN .R.#: [id number] Admission: 02/07/17 Attend Phys: Noah Marie, Discharge: Date of : 49 Date of Service: 02/07/17 0959 Report #: [id number] THIS REPORT FOR: //name// APPROVED REPORT Study performed: 02/07/2017 08:12:23 EXAM: Comprehensive 2D, Doppler, and color-flow Echocardiogram Patient Location: Echo lab/Room 210 Blood Pressure: 149/88 mmHg HR: 62 bpm Rhythm: NSR Other Information Study Quality: Adequate Indications Chest Pain Hx: HTN, HLP, tobacco abuse. 2D Dimensions RVDd: 27.78 mm LVEF(%): 52.89 (>50%) IVSd: 12.22 (7-11mm) LVOT Diam: 17.74 (18-24mm) LVDd: 41.80 mm PWd: 12.40 (7-11mm) Ascending Aorta: 27.35 mm LVDs: 30.55 (25-40mm) Aortic Root: 30.69 mm Meadows's LVEF: 52.89 % Volumes Left Atrial Volume (Systole) Single Plane 4CH: 19.06 mL Single Plane 2CH: 42.81 mL LA ESV Index: 23.00 mL/m2 Aortic Valve AoV Peak Mariano.: 1.40 m/s AI PHT: 483.75 ms AO Peak Gr.: 7.81 mmHg LV Max P.89 mmHg LV Max: 0.99 m/s AI Vmax: 5.35 m/s AI Hitchcock: 3.21 m/s2 Mitral Valve [facility] [address] [place] [address] 2 D/M-MODE ECHOCARDIOGRAM Name: ELADIA TAVAREZ Room #: [address] [place] [address] [place] ..#: [id number] Admission: 02/07/17 Attend Phys: Noah Marie, Discharge: Date of : 49 Date of Service: 02/07/17 0959 Report #: [id number] MV PHT: 88.15 ms MV E Max Mariano.: 0.58 m/s E/A Ratio: 0.6 MV A Mariano.: 0.97 m/s MV Decel. Time: 303.98 ms Pulmonary Valve PV Peak Mariano.: 0.94 m/s PV Peak Gr.: 3.53 mmHg Tricuspid Valve TR Peak Mariano.: 1.89 m/s RAP Estimate: 5.00 mmHg TR Peak Gr.: 14.32 mmHg RVSP: 19.00 mmHg Left Ventricle The left ventricle is normal size. There is normal LV segmental wall motion. Mild concentric left ventricular hypertrophy. Left ventricular systolic function is normal. LVEF is 55%. Grade I - abnormal relaxation pattern. Right Ventricle The right ventricle is normal size. The right ventricular systolic function is normal. Atria The left atrium size is normal. The right atrium size is normal. Aortic Valve The Aortic valve is sclerotic. Mild aortic regurgitation. There is no aortic valvular stenosis. Mitral Valve The mitral valve is normal in structure. Trace mitral regurgitation. Tricuspid Valve The tricuspid valve is normal in structure. There is trace to mild tricuspid regurgitation. The right atrial pressure is estimated at 5 mmHg. Estimated PAP is 19mmHg. Pulmonic Valve The pulmonary valve is normal in structure. Trace pulmonic regurgitation. Great Vessels The aortic root is normal in size. The ascending aorta is normal in size. IVC is normal in size and collapses >50% with inspiration. [facility] [address] [place] [address] 2 D/M-MODE ECHOCARDIOGRAM Name: ELADIA TAVAREZ Room #: 210-P [facility] IN [facility]#: [id number] Admission: 02/07/17 Attend Phys: Noah Marie, Discharge: Date of : 49 Date of Service: 02/07/17 0959 Report #: [id number] Pericardium There is no pericardial effusion. <Conclusion> Mild concentric left ventricular hypertrophy. There is normal LV segmental wall motion. LVEF is 55%. Grade I - abnormal relaxation pattern. The Aortic valve is sclerotic. Mild aortic regurgitation, no stenosis. Structurally normal mitral valve. Trace mitral regurgitation. There is no pericardial effusion. <ELECTRONICALLY SIGNED> By: Reza Hanna MD, [facility] 02/07/17958 8 8 Reza Hanna MD, FAC /INF
--- NOTE | ~2017-02-07 | HC ---
[facility] [place] [address] CONSULTATION Name: BRAINDELIAELADIA B Room #: 210-[facility] M.R.#: [id number] Admission: 02/07/17 Attend Phys: Noah Marie MD Discharge: 02/07/17 Date of : 49 Report #: [id number] THIS REPORT FOR: //name// CC: Burke Marie REASON FOR CONSULTATION: Elevated troponin. HISTORY OF PRESENT ILLNESS: The patient is a 71-year-old female with no known heart disease, recently discharged after having cholecystectomy, cholangiogram and liver biopsy. She was discharged about 3 days ago, but presents with both epigastric and chest pain. Her [place] is somewhat limited making things will challenging, but she does report that she has been having this band like pressure along her lower chest and then chest pressure in her chest is tend to worse with inspiration. She denies any shortness of breath. She denies PND or orthopnea. She denies presyncope or syncope. REVIEW OF SYSTEMS: GENERAL: No fevers or chills. HEENT: No blurred vision. CARDIOVASCULAR: As above. PULMONARY: No productive cough. GASTROINTESTINAL: No nausea, vomiting. GENITOURINARY: No dysuria. MUSCULOSKELETAL: No myalgias, arthralgias. ENDOCRINE: No heat or cold intolerance. NEUROLOGIC: No focal weakness. PAST MEDICAL HISTORY: 1. Hypertension. 2. Hyperlipidemia. 3. Tobacco abuse. 4. Chronic renal insufficiency. 5. Gastritis. 6. Splenectomy. 7. Knee repair. 8. Cholecystectomy with cholangiogram/liver biopsy. SOCIAL HISTORY: She smokes 1 pack per day. FAMILY HISTORY: Includes hypertension. ALLERGIES: DOXYCYCLINE, ACETAMINOPHEN, BACTRIM, LEVAQUIN. MEDICATIONS: Include metoprolol 12.5 b.i.d. Lovenox, potassium, GI cocktail, fentanyl, Zofran, nitro, aspirin. [facility] [address] [place] [address] CONSULTATION Name: ELADIA TAVAREZ Room #: [address] [place] [address]#: [id number] Admission: 02/07/17 Attend Phys: Noah Marie MD Discharge: 02/07/17 Date of : 49 Report #: [id number] PHYSICAL EXAMINATION: VITAL SIGNS: Temperature is 36.4, pulse 67, respiration 14, blood pressure 149/88. GENERAL: She is in some mild distress, complaining of mostly abdominal pain. HEENT: Oropharynx is clear. NECK: Supple, with no thyromegaly or carotid bruits. HEART: Regular rate and rhythm with normal S1 and S2. No S3, S4. LUNGS: Clear to auscultation bilaterally. ABDOMEN: Soft, nontender, nondistended with no hepatosplenomegaly. EXTREMITIES: There is no clubbing, cyanosis, edema. Cranial nerves 2-12 are intact. LABORATORY DATA: White count 15.6, hemoglobin 13, platelets are 487. D-dimer 4.28. Sodium 135, potassium 3.1, BUN 34, creatinine 2.0. I do not what her baseline creatinine is. T-bili, direct bili, AST, ALT, alkaline phosphatase all normal. Troponin initially was 0.17, decreased to 0.13. Her EKG shows some lateral ST changes different from her prior EKG a few days ago. She is in normal sinus rhythm. Chest x-ray shows no acute process. Her V/Q scan was normal. Her lower extremities show no evidence of deep vein thrombosis. ASSESSMENT AND PLAN: The patient is a 71-year-old female with a history of hypertension, tobacco abuse, chronic renal insufficiency with some abdominal and chest pain. The etiology of this is not entirely clear. She does have a slightly elevated troponin and slight lateral abnormalities on her EKG. Given her chronic renal insufficiency and her consolation of symptoms, we would recommend a nuclear stress test and echo first. If there is significant ischemia noted, then we would proceed with cardiac catheterization. We have recommended a nephrology consult. <ELECTRONICALLY SIGNED> By: Stephen Lee MD 02/10/17 [id number] Stephen Lee MD /nt
--- NOTE | ~2017-02-07 | EKG ---
[address] [address] ELECTROCARDIOGRAM REPORT Name: ELADIA TAVAREZ Room #: 210[facility] .R.#: [id number] Admission: 02/07/17 Attend Phys: Noah Marie MD Discharge: Date of : 49 Report #: [id number] THIS REPORT FOR: //name// [facility] ED Test Date: 2017-02-07 Test Time: 01:56:32 Pat Name: ELADIA TAVAREZ Department: Room: 210 Gender: F Supervising Deputy: DONALD : 1945 Requested By: Javier Newell Order Number: [id number] MD: Reza Hanna Measurements Intervals [place] Rate: 75 P: 5 TN: 129 QRS: 5 QRSD: 76 T: -40 QT: 404 QTc: 452 Interpretive Statements Sinus rhythm LVH with secondary repolarization abnormality Compared to ECG 01/29/2017 05:46:37 Atrial premature complex(es) no longer present Electronically Signed On 02-07-2017 9:38:38 CDT by Reza Hanna [email or web address] <ELECTRONICALLY SIGNED> By: Reza Hanna MD, [facility] 02/07/17 [id number] [id number] Reza Hanna MD, [facility] /EPI
[~2017-02-07 01:41] MED LIST: IBUPROFEN 600600 M1 PO
[2017-02-07 01:42] VITALS: BP 156/96
[2017-02-07] MEDS ORDERED: TRAMADOL 50 MG50 MG PO (02:05)
[2017-02-07] MEDS ORDERED: LISINOPRIL-HCT1 EAC1 PO (02:05)
[2017-02-07 02:23] LABS: ABSOLUTE NEUTROPHILS 11.1 thou/uL (1.4-8.2); BASOPHILS 0.2 % (0.0-2.0); EOSINOPHILS 2.6 % (0.0-3.0); HEMATOCRIT 40.1 % (37.0-47.0); HEMOGLOBIN 13.1 gm/dL (12.0-15.0); LYMPHOCYTES 16.5 % (24.0-44.0); MCH 26.9 pg (26.0-34.0); MCHC 32.7 g/dL (28.0-37.0); MCV 82.2 fL (80.0-100.0); MONOCYTES 9.5 % (1.0-8.0); PLATELET COUNT 487 thou/uL (150-400); POLYS 71.2 % (36.0-66.0); RBC 4.88 mil/uL (4.20-5.00); WBC 15.6 thou/uL (4.0-11.0)
[2017-02-07 02:25] LABS: MANUAL DIFF NO
[2017-02-07 02:33] LABS: ALBUMIN 2.3 g/dL (3.4-5.0); CALCIUM 8.7 mg/dL (8.5-10.1); DIRECT BILIRUBIN 0.1 mg/dL (<0.1-0.3); POTASSIUM 3.1 mmol/L (3.5-5.1); TOTAL BILIRUBIN 0.5 mg/dL (<0.1-1.0); TOTAL PROTEIN 8.7 g/dL (6.4-8.2); TROPONIN-I 0.17 ng/mL (<0.04-0.07)
[2017-02-07 04:40] VITALS: BP 132/75
[2017-02-07 05:23] VITALS: BP 134/74
[2017-02-07 07:32] VITALS: BP 149/88
[2017-02-07 13:00] VITALS: BP 154/102
== END 2017-02-07 10:48 | DRG 299 ==
LOC: ER 01:41 → EROBS 03:01 → 2N 03:01
PROVIDERS: Emergency Medicine
DX: I71.00 Dissection of unspecified site of aorta (principal); E43 Unspecified severe protein-calorie malnutrition; R07.9 Chest pain, unspecified; R10.13 Epigastric pain; I12.9 Hypertensive chronic kidney disease with stage 1 through stage 4 chronic kidney disease, or unspecified chronic kidney disease; E78.5 Hyperlipidemia, unspecified; N18.3 Chronic kidney disease, stage 3 (moderate); E87.6 Hypokalemia; F17.210 Nicotine dependence, cigarettes, uncomplicated; Z90.81 Acquired absence of spleen; Z88.1 Allergy status to other antibiotic agents; Z88.2 Allergy status to sulfonamides; Z88.8 Allergy status to other drugs, medicaments and biological substances; Z90.49 Acquired absence of other specified parts of digestive tract; Z82.49 Family history of ischemic heart disease and other diseases of the circulatory system
CPT/HCPCS: 10081